=== PATIENT | female | born 1995 | race Caucasian/White ===

== ENCOUNTER 2017-03-26 15:33 | Emergency (ER) | payer SELFPAY ==
--- NOTE | 2017-03-26 15:54 | ERNOTE ---
ER Female HPI Date of Service: 03/26/17 Stated Complaint: VAGINAL BLEEDING Presenting Symptoms: pelvic pain, vaginal discharge, vaginal bleeding Time Seen by Provider: 03/26/17 15:38 Source: patient Exam Limitations: no limitations Immunizations: IMMUNIZATION HX History of Influenza Vaccine No Allergies/Adverse Reactions: Allergies No Known Allergies Allergy (Verified 03/26/17 15:44) Home Medications: HOME MEDICATIONS NK [No Home Medication] 03/26/17 [Last Taken Unknown] - History of Present Illness Narrative: Pt. comes in with c/o vaginal bleeding for two weeks and passing a clump of tissue in the shower this morning. Pt. denies any recent that she knows of. Pt. denies any SOB, CP, NVD, fever, but does state that she had cramping that resolved after she passed the tissue. Pt. denies any prehospital treatment or aggravating factors. Review of Systems - Review of Systems Constitutional: Present: no symptoms reported. Absent: recent illness, fever, chills, weakness, fatigue, malaise EYE: Present: no symptoms reported ENT: Present: no symptoms reported Respiratory: Present: no symptoms reported. Absent: shortness of breath, cough , wheezing Cardiology: Present: no symptoms reported. Absent: chest pain, palpitations, edema Gastrointestinal/Abdominal: Present: no symptoms reported. Absent: nausea, vomiting, diarrhea Genitourinary: Present: discharge - blood. Absent: frequency, decreased urinary output Musculoskeletal: Present: no symptoms reported. Absent: back pain, neck pain, joint pain Skin: Present: no symptoms reported. Absent: rash, change in color Neurological: Present: no symptoms reported. Absent: headache, dizziness/light- headedness, numbness, tingling All Other Systems: All systems neg except as marked - Patient's Past Medical History Patient History - Medical: No pertinent hx Patient History - Cardiac/Respiratory: No pertinent hx Patient History - Cancer: No Hx of Cancer Patient History - Surgical Procedures: Other Patient History - Other: None - Social History Living Situations: home Psych History: No pertinent hx Alcohol Use: none Drug Use: none - Immunizations History of Influenza Vaccine: No Physical Exam - Physical Exam Narrative: Pt. has known history of heart murmur but has never had it worked up but denies any CP, syncope, SOB, or other symptoms so feel that this can be performed outpatient. As pt. HCG was negative but am unsure what the tissue is that she passed but feel that this also needs to be followed up outpatient as pt. is not having any significant bleeding will have Dr Hoyt follow with pt. Discussed with him and he agrees. Gave pt. numbers of our providers for her to follow up with. General Appearance: Present: wd/wn, alert, no apparent distress Head Exam: Present: normal inspection, no evidence of injury Eye Exam: Normal inspection: bilateral, PERRL: bilateral, EOMI: bilateral Respiratory: Present: no respiratory distress, normal breath sounds, no accessory muscle use, chest nontender, lungs clear Cardiovascular/Chest: Present: regular rate, rhythm, normal peripheral pulses, systolic murmur Gastrointestinal/Abdominal: Present: normal bowel sounds, nondistended, soft, no organomegaly, tenderness - Suprapubic Pelvic Exam: Present: active bleeding - minimal. Absent: discharge, lesions, cervical motion tendernes, tender adnexa, tender uterus Back Exam: Present: normal inspection, normal range of motion, no CVA tenderness , no vertebral tenderness Extremity Exam: Present: normal inspection Neurological Exam: Present: alert, oriented, normal mood/affect, no motor/ sensory deficits Skin Exam: Present: normal color, warm/dry. Absent: pallor, skin rash ED Progress - Date and Time Seen: Date and Time: 03/26/17 17:[address] Thomas and he feels that this is a decidual cast and that is can be prevented in the future by taking 600mg the night before your period starts. - Results and Orders Patient's Lab Results:: I have reviewed the patient's lab results. - Vital Signs Patient's Vital Signs:: I have reviewed the patient's vital signs. 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 Please take 600mg of Ibuprofen margarita night before your period is supposed to start.
[2017-03-26 16:10] LABS: Hematocrit 37.8 % (37.0-47.0); Hemoglobin 12.8 gm/dL (12.5-16.0); Mean Cell Volume 88.7 fl (78-100); Mean Corpuscular Hgb Conc 33.9 g/dl (32-36); Mean Platelet Volume 10.4 fl (6.0-9.5); Neutrophil # 4.4 K/mm3 (1.3-6.0); Neutrophil % 70.3 % (42-75.0); Platelet Count 234 K/mm3 (150-450); Red Blood Count 4.26 M/mm3 (4.2-5.4); Red Cell Distribution Width 12.4 % (11.5-14.0); White Blood Count 6.2 K/mm3 (4.0-10.5)
[2017-03-26 16:25] LABS: Albumin * 3.8 gm/dl (3.4-5.0); Anion Gap 13.3 mmol/L (6.8-13.8); BUN/Creatinine Ratio 14.5 (9.0-21.6); Bilirubin, Total 0.3 mg/dL (0.0-1.1); Ca. Corrected For Albumin 8.1 mg/dL (8.4-10.2); Calcium * 8.3 mg/dL (7.9-10.9); Carbon Dioxide 26.4 mmol/L (24-32.6); Potassium 3.7 mmol/L (3.4-4.6); Total Protein 7.8 gm/dL (6.2-8.2)
[2017-03-26 16:40] LABS: Urine Bilirubin Negative (NEGATIVE); Urine Blood 50 /ul (NEGATIVE); Urine Ketone Negative (NEGATIVE); Urine Nitrite Negative (NEGATIVE); Urine Protein Negative (NEGATIVE); Urine Specific Gravity <=1.005 SP.GR. (1.005-1.010); Urine Urobilinogen Normal (NORMAL)
[2017-03-26 16:48] LABS: Urine Appearance Clear; Urine Bacteria 1+; Urine Color Yellow; Urine RBC None Seen /hpf (0-5); Urine WBC 0-5 /hpf (0-5)
[2017-03-26 17:07] VITALS: BP 152/87
== END 2017-03-26 17:54 | disposition home or self-care (01) ==
LOC: ER 15:33
DX: N92.6 Irregular menstruation, unspecified (principal)